=== PATIENT | female | born 1965 | race African-American/Black ===

== ENCOUNTER 2019-04-04 14:18 | Inpatient (IN) | payer OTHER ==
[2019-04-04 18:59] VITALS: BMI 32.8
--- NOTE | 2019-04-04 22:16 | HP ---
"CIWA Score - Admission Criteria [facility] Guidelines: Admission for Medically Managed Detox: Requires at least one of the followin. CIWA greater than 12 2. Seizures within the past 24 hours 3. Delirium tremens within the past 24 hours 4. Hallucinations within the past 24 hours 5. Acute intervention needed for co occurring medical disorder 6. Acute intervention needed for co occurring psychiatric disorder 7. Severe withdrawal that cannot be handled at a lower level of care (continued vomiting, continued diarrhea, abnormal vital signs) requiring intravenous medication and/or fluids 8. Admission ROS S - [facility] Chief Complaint: Here to stop drugs. Allergies/Adverse Reactions: Allergies Allergy/AdvReac Type Severity Reaction Status Date / Time No Known Allergies Allergy Verified 04/04/19 18:55 History of Present Illness: 54 yo requesting detox from heroin and cocaine. NICHOLE: 0.0 Utox: + CHANDAN/FEN/MOP/OXY/MTD Heroin use began at age 33. Patient is on Start MMTP and is on Methadone 170 mg PO Daily. Patient states last medicated today. Patient continues to relapse w/ heroin - 3-6 bags and sniffs every other day. Has a Narcan kit at home. Cocaine use since age 21. Current use $60/day - smokes Nicotine use since age 17. Current use down to 1- 2 cig/day. Alcohol use q 3-4 months - 1 nip. Denies seizures, blackouts, or overdoses. PMHx: Denies significant MHHx: Anxiety, Depression, Bipolar. Does not see a Psych. Not on meds. Denies thoughts of harming self or others. SHx: Domiciled. Unemployed. Denies legal issues. Search Terms: Stephie German, 1965 Search Date: 04/04/2019 10:08:57 PM The Drug Utilization Report below displays all of the controlled substance prescriptions, if any, that your patient has filled in the last twelve months. The information displayed on this report is compiled from pharmacy submissions to the Department, and accurately reflects the information as submitted by the pharmacies. This report was requested by: Maria G Gabriel | Reference #: [id number] There are no results for the search terms that you entered. Search Terms: Stephie German, 1965 Search Date: 04/04/2019 10:09:43 PM States Searched: [place], [place], [place], [place], [place], [place], [place] The Drug Utilization Report below displays the controlled substance prescriptions, if any, that were dispensed in the indicated state(s). The information displayed on this report is compiled from requests submitted to other states' PMPs, and accurately reflects the information as returned by them. Blank allan indicate data not provided by other state. This report was requested by: Maria G Gabriel | Reference #: [id number] There are no results for the search terms that you entered. Exam Limitations: No Limitations - Ebola screening Have you traveled outside of the country in the last 21 days: No (N) Have you had contact with anyone from an Ebola affected area: No Have you been sick,other than usual withdrawal symptoms: No Do you have a fever: No - Review of Systems Constitutional: Changes in sleep (Difficulty falling asleep and staying asleep) EENT: reports: Blurred Vision Respiratory: reports: SOB with Exertion (When climbing stairs w/o chest pain) Cardiac: reports: No Symptoms Reported GI: reports: No Symptoms Reported : reports: No Symptoms Reported Musculoskeletal: reports: No Symptoms Reported Integumentary: reports: No Symptoms Reported Neuro: reports: No Symptoms reported Endocrine: reports: No Symptoms Reported Hematology: reports: No Symptoms Reported Psychiatric: reports: Orientated x3, Depressed (Denies thoughts of harming self or others.) Patient History - PPD History Previous Implant?: Yes Documented Results: Negative w/o proof Implanted On Prior R Admission?: No PPD to be Administered?: Yes - Reproductive History Patient is a Female of Child Bearing Age (11 -55 yrs old): No - Smoking Cessation Smoking history: Current some day smoker Have you smoked in the past 12 months: Yes Aproximately how many cigarettes per day: 2 Hx Chewing Tobacco Use: No Initiated information on smoking cessation: Yes 'Breaking Loose' booklet given: 04/04/19 - Substance & Tx. History Hx Alcohol Use: No Hx Substance Use: Yes Substance Use Type: Cocaine, Heroin Hx Substance Use Treatment: Yes (detox; on MMTP) - Substances abused Heroin Substance route: Inhalation Frequency: Daily Amount used: 5-6 bags Age of first use: 33 Date of last use: 04/04/19 Admission Physical Exam [facility] - Vital Signs Vital Signs: Vital Signs - 24 hr 04/04/19 18:56 Temperature 97.1 F L Pulse Rate 65 Respiratory 16 Rate Blood Pressure 116/80 - Physical General Appearance: Yes: No Apparent Distress, Nourished, Obese HEENTM: Yes: EOMI, Hearing grossly Normal, Normocephalic, Normal Voice, SHAYNE ( Pupils = 3 mm), Other (Tonsils - stage 2. No erythema or exudate.) Respiratory: Yes: Lungs Clear, Normal Breath Sounds, No Respiratory Distress Neck: Yes: No masses,lesions,Nodules, Supple Breast: Yes: Breast Exam Deferred Cardiology: Yes: Regular Rhythm, Regular Rate, S1, S2 Abdominal: Yes: Non Tender, Soft, Increased Bowel Sounds, Protuberent ( Increased abdominal adiposity) Genitourinary: Yes: Within Normal Limits Back: Yes: Within Normal Limits Musculoskeletal: Yes: full range of Motion, Gait Steady Extremities: Yes: Normal Capillary Refill Neurological: Yes: activities specialist II-XII NML intact, Fully Oriented, Alert, Motor Strength 5/5, Normal Response Integumentary: Yes: Normal Color, Dry, Warm Lymphatic: Yes: Within Normal Limits - Diagnostic (1) Cocaine abuse, uncomplicated Current Visit: Yes Status: Chronic (2) Opioid dependence on agonist therapy Current Visit: Yes Status: Chronic Comment: on MMTP (3) Nicotine abuse Current Visit: Yes Status: Chronic Cleared for Admission [facility] - Detox or Rehab Claeared for Rehab Admission: Yes Breathalyzer - Breathalyzer Breathalyzer: 0 Urine Drug Screen - Test Device Lot number: [id number] Expiration date: 12/08/20 - Control Is test valid?: Yes - Results Drug screen NEGATIVE: No Urine drug screen results: CHANDAN-Cocaine, FEN-Fentanyl, MOP-Opiates, OXY-Oxycodone , MTD-Methadone Inpatient Rehab Admission - Rehab Decision to Admit Inpatient rehab admission?: Yes - Initial Determination Are CD services needed?: Yes Free of communicable disease: Yes Not in need of hospitalization: Yes - Rehab Admission Criteria Previous failed treatment: Yes Poor recovery environment: Yes Comorbidities: Yes Lacks judgement: No Patient is meeting Inpatient Rehab admission criteria:: Yes"
[2019-04-04] MEDS ORDERED: MENTHOL/PHENOL 1 EACH UD MM PRN (22:40)
[2019-04-04] MEDS ORDERED: P-EPHED 60MG/TRIPROLIDI 2.5MG TABLET PO PRN (22:40)
[2019-04-04] MEDS ORDERED: MAGNESIUM HYDROX 2400MG/30ML ORAL SUSPENSION 30 ML CUP PO PRN (22:40)
[2019-04-04] MEDS ORDERED: NICOTINE POLACRILEX 2 MG GUM BC PRN (22:40)
[2019-04-04] MEDS ORDERED: LOPERAMIDE HCL 2 MG CAPSULE PO PRN (22:40)
[2019-04-04] MEDS ORDERED: MAGNESIUM CITRATE 300 ML BOTTLE PO PRN (22:40)
[2019-04-04] MEDS ORDERED: hydrOXYzine PAMOATE 50 MG CAPSULE (FP) PO PRN (22:40)
[2019-04-04] MEDS ORDERED: guaiFENesin 200 MG/10 ML 10 ML UNIT-DOSE CUPS PO PRN (22:40)
[2019-04-05] MEDS ORDERED: TUBERCULIN PPD 5 TU/0.1ML VIAL ID ONE (00:30)
[2019-04-05] MEDS: ACETAMINOPHEN 325 MG TABLET (FP) PO PRN ×2 (08:32→18:54)
[2019-04-05] MEDS ORDERED: METHADONE HCL 10 MG TABLET PO ONE (08:50)
[2019-04-05] MEDS ORDERED: METHADONE 160 MG, METHADONE 10 MG PO ONE (09:15)
[2019-04-05] MEDS ORDERED: METHADONE HCL 10 MG TABLET ONE (09:17)
[2019-04-05] MEDS ORDERED: METHADONE HCL 40 MG DISPERSABLE TABLET ONE (09:18)
[2019-04-05] MEDS: PRENATAL VITAMINS W/ FOLIC ACID TABLET (FP) PO SCH (09:20)
[2019-04-05 12:30] LABS: HEMATOCRIT 41.4 % (32.4-45.2); MCH 26.4 pg (25.7-33.7); MCHC 31.4 g/dl (32.0-36.0); MEAN CELL VOLUME 84.1 fl (80-96); MEAN PLT VOLUME 8.7 fl (7.5-11.1); PLATELET COUNT 322 K/MM3 (134-434); RBC 4.92 M/mm3 (3.60-5.2); RDW 15.5 % (11.6-15.6); WHITE BLOOD COUNT 8.2 K/mm3 (4.0-10.0)
[2019-04-05 12:32] LABS: ALBUMIN 3.4 g/dl (3.4-5.0); BILIRUBIN,TOTAL 0.4 mg/dL (0.2-1); BLOOD UREA NITROGEN 12.8 mg/dL (7-18); CALCIUM 8.7 mg/dL (8.5-10.1); CREATININE 0.6 mg/dL (0.55-1.3); POTASSIUM 4.6 mmol/L (3.5-5.1); TOT PROT 7.1 g/dl (6.4-8.2)
[2019-04-05 17:11] LABS: EPI CELLS 7.7 /HPF (0-5/HPF); HYALINE CASTS 5 /lpf (0-8); URINE APPEARANCE CLEAR; URINE BACTERIA 136.1 /hpf (NEGATIVE); URINE BILIRUBIN NEGATIVE (NEGATIVE); URINE COLOR YELLOW; URINE GLUCOSE (UA) NEGATIVE (NEGATIVE); URINE KETONE NEGATIVE (NEGATIVE); URINE LEUK ESTERASE TRACE (NEGATIVE); URINE NITRITE NEGATIVE (NEGATIVE); URINE PROTEIN NEGATIVE (NEGATIVE); URINE RBC 1 /hpf (0-4); URINE WBC 9 /hpf (0-5)
[2019-04-05] MEDS: THIAMINE HCL 100 MG TABLET (FP) PO SCH (21:31)
[2019-04-06] MEDS ORDERED: METHADONE HCL 10 MG TABLET ONE (05:57)
[2019-04-06] MEDS ORDERED: METHADONE HCL 40 MG DISPERSABLE TABLET ONE (05:58)
[2019-04-06] MEDS ORDERED: METHADONE HCL 10 MG TABLET PO SCH (06:00)
[2019-04-06] MEDS: METHADONE 160 MG, METHADONE 10 MG PO SCH (06:27)
[2019-04-06] MEDS: PRENATAL VITAMINS W/ FOLIC ACID TABLET (FP) PO SCH (10:32)
[2019-04-06] MEDS: IBUPROFEN 400 MG TABLET (FP) PO PRN (11:10)
[2019-04-06] MEDS: THIAMINE HCL 100 MG TABLET (FP) PO SCH (21:20)
[2019-04-06] MEDS: MELATONIN 5 MG TABLETS PO PRN (21:21)
[2019-04-07] MEDS ORDERED: METHADONE HCL 40 MG DISPERSABLE TABLET ONE (05:56)
[2019-04-07] MEDS ORDERED: METHADONE HCL 10 MG TABLET ONE (05:56)
[2019-04-07] MEDS: METHADONE 160 MG, METHADONE 10 MG PO SCH (06:22)
[2019-04-07] MEDS: PRENATAL VITAMINS W/ FOLIC ACID TABLET (FP) PO SCH (10:33)
[2019-04-07] MEDS: MELATONIN 5 MG TABLETS PO PRN (21:17)
[2019-04-07] MEDS: THIAMINE HCL 100 MG TABLET (FP) PO SCH (21:17)
[2019-04-08] MEDS ORDERED: METHADONE HCL 40 MG DISPERSABLE TABLET ONE (03:33)
[2019-04-08] MEDS ORDERED: METHADONE HCL 10 MG TABLET ONE (03:33)
[2019-04-08] MEDS: METHADONE 160 MG, METHADONE 10 MG PO SCH (06:21)
[2019-04-08] MEDS: PRENATAL VITAMINS W/ FOLIC ACID TABLET (FP) PO SCH (10:40)
[2019-04-08] MEDS: IBUPROFEN 400 MG TABLET (FP) PO PRN (13:20)
[2019-04-08] MEDS: MELATONIN 5 MG TABLETS PO PRN (21:08)
[2019-04-08] MEDS: THIAMINE HCL 100 MG TABLET (FP) PO SCH (21:08)
[2019-04-09] MEDS ORDERED: METHADONE HCL 10 MG TABLET ONE (03:30)
[2019-04-09] MEDS ORDERED: METHADONE HCL 40 MG DISPERSABLE TABLET ONE (03:31)
[2019-04-09] MEDS: METHADONE 160 MG, METHADONE 10 MG PO SCH (06:24)
[2019-04-09] MEDS: PRENATAL VITAMINS W/ FOLIC ACID TABLET (FP) PO SCH (10:26)
[2019-04-09] MEDS: MAG HYDROX/AL HYDROX/SIMETH 30 ML UNIT-DOSE CUP PO PRN ×2 (10:27→21:25)
[2019-04-09] MEDS: MELATONIN 5 MG TABLETS PO PRN (21:23)
[2019-04-09] MEDS: THIAMINE HCL 100 MG TABLET (FP) PO SCH (21:24)
[2019-04-10] MEDS ORDERED: METHADONE HCL 10 MG TABLET ONE (03:36)
[2019-04-10] MEDS ORDERED: METHADONE HCL 40 MG DISPERSABLE TABLET ONE (03:36)
[2019-04-10] MEDS: METHADONE 160 MG, METHADONE 10 MG PO SCH (06:28)
[2019-04-10] MEDS: PRENATAL VITAMINS W/ FOLIC ACID TABLET (FP) PO SCH (10:49)
[2019-04-10] MEDS: MELATONIN 5 MG TABLETS PO PRN (21:47)
[2019-04-10] MEDS: THIAMINE HCL 100 MG TABLET (FP) PO SCH (21:47)
[2019-04-10] MEDS: MAG HYDROX/AL HYDROX/SIMETH 30 ML UNIT-DOSE CUP PO PRN (21:48)
[2019-04-11] MEDS ORDERED: METHADONE HCL 40 MG DISPERSABLE TABLET ONE (06:22)
[2019-04-11] MEDS ORDERED: METHADONE HCL 10 MG TABLET ONE (06:22)
[2019-04-11] MEDS: METHADONE 160 MG, METHADONE 10 MG PO SCH (06:28)
[2019-04-11] MEDS ORDERED: COLLOIDAL OATMEAL 1 BAR EACH TP PRN (08:46)
[2019-04-11] MEDS: PRENATAL VITAMINS W/ FOLIC ACID TABLET (FP) PO SCH (10:38)
[2019-04-11] MEDS: THIAMINE HCL 100 MG TABLET (FP) PO SCH (22:46)
[2019-04-11] MEDS: MELATONIN 5 MG TABLETS PO PRN (22:46)
[2019-04-12] MEDS ORDERED: METHADONE HCL 10 MG TABLET PO SCH (06:00)
[2019-04-12] MEDS ORDERED: METHADONE HCL 10 MG TABLET ONE (06:31)
[2019-04-12] MEDS ORDERED: METHADONE HCL 40 MG DISPERSABLE TABLET ONE (06:31)
[2019-04-12] MEDS: METHADONE 160 MG, METHADONE 10 MG PO SCH (06:32)
[2019-04-12] MEDS ORDERED: PT OWN MED DRAWER 7, Y5N ONE (08:33)
[2019-04-12] MEDS: MAG HYDROX/AL HYDROX/SIMETH 30 ML UNIT-DOSE CUP PO PRN (09:38)
[2019-04-12] MEDS: PRENATAL VITAMINS W/ FOLIC ACID TABLET (FP) PO SCH (09:38)
[2019-04-12] MEDS: MELATONIN 5 MG TABLETS PO PRN (21:38)
[2019-04-12] MEDS: THIAMINE HCL 100 MG TABLET (FP) PO SCH (21:45)
[2019-04-13] MEDS ORDERED: METHADONE HCL 10 MG TABLET ONE (05:48)
[2019-04-13] MEDS ORDERED: METHADONE HCL 40 MG DISPERSABLE TABLET ONE (05:48)
[2019-04-13] MEDS: METHADONE 160 MG, METHADONE 10 MG PO SCH (06:03)
[2019-04-13] MEDS: PRENATAL VITAMINS W/ FOLIC ACID TABLET (FP) PO SCH (09:05)
[2019-04-13] MEDS: IBUPROFEN 400 MG TABLET (FP) PO PRN (09:07)
[2019-04-13] MEDS: THIAMINE HCL 100 MG TABLET (FP) PO SCH (21:30)
[2019-04-13] MEDS: MELATONIN 5 MG TABLETS PO PRN (21:31)
[2019-04-14] MEDS ORDERED: METHADONE HCL 10 MG TABLET ONE (03:27)
[2019-04-14] MEDS ORDERED: METHADONE HCL 40 MG DISPERSABLE TABLET ONE (03:28)
[2019-04-14] MEDS: METHADONE 160 MG, METHADONE 10 MG PO SCH (06:10)
[2019-04-14] MEDS: PRENATAL VITAMINS W/ FOLIC ACID TABLET (FP) PO SCH (10:28)
--- NOTE | 2019-04-14 13:27 | PN ---
[facility] Progress Note Note: Patient c/o headache which radiates to left eye. States she went to eye dr about a month ago and diagnosed with inflammation. No regular eye drop medication ordered. Patient denies change in vision, dizziness, floaters and pressure behind eye. Vital Signs Temperature 98.1 F 04/14/19 07:20 Pulse Rate 70 04/14/19 07:20 Respiratory Rate 18 04/14/19 07:20 Blood Pressure 119/71 04/14/19 07:20 O2 Sat by Pulse Oximetry (%) PE: alert and oriented x 3 skin warm and dry +perrla, eoms intact bl neck supple, no jvd cranial nerves 1-x11 grossly intact ext full rom, amb ad jabari gait steady A/P: headache left eye discomfort will continue ibuprofen prn monitor clinically
[2019-04-14] MEDS: IBUPROFEN 400 MG TABLET (FP) PO PRN (13:32)
[2019-04-14] MEDS: MELATONIN 5 MG TABLETS PO PRN (21:31)
[2019-04-14] MEDS ORDERED: PT OWN MED DRAWER 7, Y5N ONE (21:32)
[2019-04-14] MEDS: THIAMINE HCL 100 MG TABLET (FP) PO SCH (21:32)
[2019-04-14] MEDS: TOLNAFTATE 1% CREAM 15 GM TUBE TP SCH (21:33)
[2019-04-15] MEDS ORDERED: METHADONE HCL 40 MG DISPERSABLE TABLET ONE (06:06)
[2019-04-15] MEDS ORDERED: METHADONE HCL 10 MG TABLET ONE (06:06)
[2019-04-15] MEDS: METHADONE 160 MG, METHADONE 10 MG PO SCH (06:31)
[2019-04-15] MEDS: PRENATAL VITAMINS W/ FOLIC ACID TABLET (FP) PO SCH (10:04)
[2019-04-15] MEDS: TOLNAFTATE 1% CREAM 15 GM TUBE TP SCH ×2 (10:05→21:34)
[2019-04-15] MEDS: MELATONIN 5 MG TABLETS PO PRN (21:33)
[2019-04-15] MEDS: THIAMINE HCL 100 MG TABLET (FP) PO SCH (21:34)
[2019-04-16] MEDS ORDERED: METHADONE HCL 40 MG DISPERSABLE TABLET ONE (03:12)
[2019-04-16] MEDS ORDERED: METHADONE HCL 10 MG TABLET ONE (03:12)
[2019-04-16] MEDS: METHADONE 160 MG, METHADONE 10 MG PO SCH (06:11)
[2019-04-16] MEDS: TOLNAFTATE 1% CREAM 15 GM TUBE TP SCH ×2 (09:49→21:16)
[2019-04-16] MEDS: PRENATAL VITAMINS W/ FOLIC ACID TABLET (FP) PO SCH (09:49)
[2019-04-16] MEDS: MELATONIN 5 MG TABLETS PO PRN (21:16)
[2019-04-16] MEDS: THIAMINE HCL 100 MG TABLET (FP) PO SCH (21:17)
[2019-04-17] MEDS ORDERED: METHADONE HCL 10 MG TABLET ONE (03:21)
[2019-04-17] MEDS ORDERED: METHADONE HCL 40 MG DISPERSABLE TABLET ONE (03:22)
[2019-04-17] MEDS: METHADONE 160 MG, METHADONE 10 MG PO SCH (06:07)
[2019-04-17] MEDS ORDERED: PT OWN MED DRAWER 7, Y5N ONE (08:52)
[2019-04-17] MEDS: PRENATAL VITAMINS W/ FOLIC ACID TABLET (FP) PO SCH (09:12)
[2019-04-17] MEDS: TOLNAFTATE 1% CREAM 15 GM TUBE TP SCH ×2 (09:13→21:30)
[2019-04-17] MEDS: MAG HYDROX/AL HYDROX/SIMETH 30 ML UNIT-DOSE CUP PO PRN (16:44)
[2019-04-17] MEDS: THIAMINE HCL 100 MG TABLET (FP) PO SCH (21:30)
[2019-04-17] MEDS: MELATONIN 5 MG TABLETS PO PRN (21:30)
[2019-04-18] MEDS ORDERED: METHADONE HCL 10 MG TABLET PO SCH (06:00)
[2019-04-18] MEDS ORDERED: METHADONE 160 MG, METHADONE 10 MG PO SCH (06:00)
[2019-04-18] MEDS ORDERED: METHADONE HCL 10 MG TABLET ONE (06:09)
[2019-04-18] MEDS ORDERED: METHADONE HCL 40 MG DISPERSABLE TABLET ONE (06:09)
[2019-04-18 06:59] VITALS: BP 113/75; PULSE 76; TEMP 98.1
[2019-04-18] MEDS: TOLNAFTATE 1% CREAM 15 GM TUBE TP SCH (10:06)
[2019-04-18] MEDS: PRENATAL VITAMINS W/ FOLIC ACID TABLET (FP) PO SCH (10:06)
--- NOTE | 2019-04-18 11:29 | DS ---
[facility] Rehab Discharge Summary - [facility] Rehab Discharge Summary Admission Date: 04/04/19 Discharge Date: 04/18/19 - History Present History: Cocaine dependence, Opioid dependence - Discharge Physical Exam Vital Signs: Vital Signs Temperature 98.1 F 04/18/19 06:58 Pulse Rate 76 04/18/19 06:58 Respiratory Rate 18 04/18/19 06:58 Blood Pressure 113/75 04/18/19 06:58 O2 Sat by Pulse Oximetry (%) Pertinent Admission Physical Exam Findings: ROS: denies opiod cravings, headache, sweating and shakes. PE: alert and oriented x 3 skin warm and dry +perrla, eoms intact bl car s1s2, rrr, no murmurs or gallops resp cta bl, no wheezes or rales ext no tremors, amb ad jabari - Treatment Discharge Condition: Discharge condition good Hospital Course: Patient d/c from rehab today for opiod/cocaine dependence. States she accomplished all rehab goals, is able to identify triggers and positive coping mechanisms. Aftercare arranged for [facility] and patient has appointment 04/19/19 for daily dosing of MTD. Patient encouraged to continue with group meetings and outpatient services to prevent relapse and to follow up with PCP as recommended. Patient d/c medically stable and denies SI/HI. - Medication Discharge Medications: Ambulatory Orders NK [No Known Home Medication] 04/04/19 - Medication-Assisted Treatment (MAT) Medication-Assisted Treatment (MAT): Yes MAT Follow-up Referral: On [facility] at [facility] in [place], [place]. - Discharge Instructions Diet, activity, other medical instructions: Diet: reg as tolerated Activity: as tolerated Other medical instructions: follow up with pcp as recommended. - Follow-up Referral Minutes to complete discharge: 30 - AMA Did Patient Leave Against Medical Advice: No
== END 2019-04-18 13:10 | disposition home or self-care (01) | DRG 772 ==
LOC: YASAS 14:18 → Y3E 22:36 → Y3N 04-05 22:26 → Y3E 04-05 22:28
PROVIDERS: ADMIT Neuromusculoskeletal Medicine & OMM; ATTEND Neuromusculoskeletal Medicine & OMM
PROC: HZ42ZZZ Group Counseling for Substance Abuse Treatment, Cognitive-Behavioral (ICD-10-PCS; principal; 2019-04-04)
DX: F11.20 Opioid dependence, uncomplicated (principal); F14.20 Cocaine dependence, uncomplicated; Z72.0 Tobacco use; R51 Headache; H57.12 Ocular pain, left eye
CPT/HCPCS: 36415; 80053; 81003; 85027; 86593

== ENCOUNTER 2023-10-19 16:36 | Inpatient (IN) | payer OTHER ==
[2023-10-19 19:42] VITALS: BMI 25.0
[2023-10-19] MEDS ORDERED: MAGNESIUM HYDROX 2400MG/30ML ORAL SUSPENSION 30 ML CUP PO PRN (23:02)
[2023-10-19] MEDS ORDERED: BENZOCAINE/MENTHOL (CHLORASEPTIC ) LOZENGE MM PRN (23:02)
[2023-10-19] MEDS ORDERED: MAG HYDROX/AL HYDROX/SIMETH 30 ML UNIT-DOSE CUP PO PRN (23:02)
[2023-10-19] MEDS ORDERED: NALOXONE HCL 0.4 MG/ML VIAL IVPUSH PRN (23:02)
[2023-10-19] MEDS ORDERED: NALOXONE (NYS OPIOID OVERDOSE PROGRAM) 4 MG/0.1 ML SPRAY NS PRN (23:02)
[2023-10-19] MEDS ORDERED: guaiFENesin 600 MG TABLET.ER (FP) PO PRN (23:02)
[2023-10-19] MEDS ORDERED: BENZONATATE 200 MG CAPSULE PO PRN (23:02)
[2023-10-19] MEDS ORDERED: POLYETHYLENE GLYCOL (HEALTHYLAX) 3350 17 GM PACKET PO PRN (23:02)
[2023-10-19] MEDS ORDERED: LOPERAMIDE HCL 2 MG CAPSULE PO PRN (23:02)
[2023-10-19] MEDS: MELATONIN 5 MG TABLETS PO SCH (23:34)
[2023-10-20] MEDS: NICOTINE 14 MG/24 HOURS TOPICAL PATCH TD SCH (06:26)
[2023-10-20] MEDS: PRENATAL VITAMINS W/ FOLIC ACID TABLET (FP) PO SCH (06:26)
[2023-10-20] MEDS: methaDONE HCL 40 MG DISPERSABLE TABLET PO SCH (09:23)
[2023-10-20] MEDS ORDERED: TUBERCULIN PPD 5 TU/0.1ML VIAL ID ONE (11:20)
[2023-10-20] MEDS: TUBERCULIN PPD 5 TU/0.1ML SYRINGE (IN PATIENT USE ONLY) ID ONE (11:46)
[2023-10-20] MEDS: THIAMINE 100 MG TABLET PO SCH (21:11)
[2023-10-23] MEDS: BISMUTH SUBSALICYLATE 262 MG/15 ML BTL PO PRN (10:15)
[2023-10-23 10:58] LABS: BASO % 0.4 % (0-2.0); EOS % 4.1 % (0-4.5); HEMATOCRIT 39.6 % (32.4-45.2); HEMOGLOBIN 12.5 GM/dL (10.7-15.3); LYMPH % 31.6 % (8-40); MCH 27.5 pg (25.7-33.7); MCHC 31.7 g/dl (32.0-36.0); MEAN CELL VOLUME 86.8 fl (80-96); MONO % 5.7 % (3.8-10.2); NEUT % 58.2 % (42.8-82.8); PLATELET COUNT 268 10^3/uL (134-434); RBC 4.56 M/mm3 (3.60-5.2); RDW 15.2 % (11.6-15.6)
[2023-10-23 12:07] LABS: SYPHILIS W/ RPR CONF NON-REACTIVE (NONREACTIVE)
[2023-10-23 12:25] LABS: ALBUMIN 3.1 g/dl (3.4-5.0); BLOOD UREA NITROGEN 12.1 mg/dL (7-18); CALCIUM 8.7 mg/dL (8.5-10.1)
[2023-10-23 12:29] LABS: BILIRUBIN,TOTAL 0.3 mg/dL (0.2-1); CREATININE 0.5 mg/dL (0.55-1.3); TOT PROT 6.6 g/dl (6.4-8.2)
[2023-10-25] MEDS: ACETAMINOPHEN 325 MG TABLET (FP) PO PRN (17:08)
[2023-10-27] MEDS: IBUPROFEN 600 MG TABLET (FP) PO PRN (08:46)
[2023-10-27] MEDS: NICOTINE POLACRILEX 4 MG GUM BUC PRN (17:04)
[2023-10-28] MEDS: methaDONE HCL 40 MG DISPERSABLE TABLET PO SCH (05:35)
[2023-10-29] MEDS: hydrOXYzine PAMOATE 25 MG CAPSULE (FP) PO PRN (14:51)
[2023-10-30] MEDS: GABAPENTIN 100 MG CAPSULE PO SCH (14:52)
[2023-11-02] MEDS: LIDOCAINE 4% PATCH TP SCH (14:43)
[2023-11-02] MEDS: LIDOCAINE PATCH REMOVAL MC SCH (21:59)
[2023-11-02] MEDS: GABAPENTIN 100 MG CAPSULE PO SCH (22:00)
[2023-11-02] MEDS: BACLOFEN 10 MG TABLET (FP) PO SCH (22:04)
[2023-11-04] MEDS: hydrOXYzine PAMOATE 25 MG CAPSULE (FP) PO PRN (14:52)
[2023-11-04] MEDS: MELATONIN 5 MG TABLETS PO SCH (21:03)
[2023-11-05] MEDS: IBUPROFEN 400 MG TABLET (FP) PO PRN (14:30)
[2023-11-06 06:55] VITALS: RESP 18
[2023-11-08 07:25] VITALS: BP 134/73; PULSE 76; TEMP 97.1
== END 2023-11-08 10:45 | disposition home or self-care (01) | DRG 772 ==
LOC: YASAS 16:36 → Y5N 22:57
PROVIDERS: ADMIT Allergy & Immunology; ATTEND Psychiatry & Neurology Pain Medicine
PROC: HZ42ZZZ Group Counseling for Substance Abuse Treatment, Cognitive-Behavioral (ICD-10-PCS; principal; 2023-10-19)
DX: F14.20 Cocaine dependence, uncomplicated (principal); F11.20 Opioid dependence, uncomplicated; F10.20 Alcohol dependence, uncomplicated; F17.210 Nicotine dependence, cigarettes, uncomplicated; F19.282 Other psychoactive substance dependence with psychoactive substance-induced sleep disorder; F19.280 Other psychoactive substance dependence with psychoactive substance-induced anxiety disorder; F39 Unspecified mood [affective] disorder; M54.32 Sciatica, left side
CPT/HCPCS: 36415; 80053; 80305; 85025; 86780; 86803; J0475